=== PATIENT | female | born 1940 | race Caucasian/White ===

== ENCOUNTER 2017-05-09 10:41 | Inpatient (IN) | payer BC ==
[2017-05-06 11:37] LABS: BASOPHILS 0.7 %; BASOPHILS ABSOLUTE 0.05 10/3/uL (0.0-0.16); EOSINOPHILS 2.7 %; EOSINOPHILS ABSOLUTE 0.21 10/3/uL (0.0-0.53); HEMATOCRIT 37.4 % (36.0-48.0); HEMOGLOBIN 12.2 g/dL (12.0-16.0); IMMATURE GRANULOCYTES 0.1 %; IMMATURE GRANULOCYTES ABSOLUTE 0.01 10/3/uL (0.0-0.11); LYMPHOCYTES 23.7 %; LYMPHOCYTES ABSOLUTE 1.82 10/3/uL (0.67-4.30); MANUAL DIFF NO %; MEAN CORPUS HGB CONC 32.6 g/dL (32.0-36.0); MEAN CORPUSCULAR HEMOGLOB 29.3 pg (26.0-34.0); MEAN CORPUSCULAR VOLUME 89.7 fL (80-100); MEAN PLATELET VOLUME 9.7 fL (9.2-13.0); MONOCYTES 8.6 %; MONOCYTES ABSOLUTE 0.66 10/3/uL (0.21-1.20); NEUTROPHILS 64.2 %; NEUTROPHILS ABSOLUTE 4.93 10/3/uL (2.02-8.40); PLATELET COUNT 284 10/3/uL (150-400); RBC DISTRIBUTION WIDTH 13.4 % (12.0-16.0); RED CELL COUNT 4.17 10/6/uL (4.0-5.6); WHITE BLOOD CELLS 7.7 10/3/uL (4.5-10.5)
[2017-05-06 11:50] LABS: BUN (BLOOD UREA NITROGEN) 16 MG/DL (6-23); CALCIUM, SERUM 9.3 MG/DL (8.5-10.4); CHLORIDE, SERUM 104 MMOL/L (96-112); CO2 (CARBON DIOXIDE) 27 MMOL/L (24-34); CREATININE 1.23 MG/DL (0.55-1.02); GFR AFRICAN AMERICAN 50 ML/MIN (>=60); GFR NON AFRICAN AMERICAN 43 ML/MIN (>=60); GLUCOSE, SERUM 101 MG/DL (60-99); POTASSIUM, SERUM 3.9 MMOL/L (3.5-5.3); SODIUM, SERUM 137 MMOL/L (135-148)
--- NOTE | ~2017-05-09 | OP ---
Record Of Operation [facility] [address] [place]. [address] NAME: SAMPLE,CRYSTAL LOTT : 44 STATUS : ADM Yonny PAT#: [id number] AGE: 77 ADM/REG DATE : 05/09/17 MR#: [id number] REPORT SERV DATE: 05/10/17 DICTATED BY: MIRNA GRULLON DATE: 05/09/17 REPORT STATUS : Draft TRANSCRIBED BY: MODRoxana DATE: 05/09/17 DATE OF PROCEDURE: 05/09/2017 PREPROCEDURE DIAGNOSIS: Diverticulitis. POSTPROCEDURE DIAGNOSIS: Diverticulitis. PROCEDURE: Robotic low anterior resection. MANAGER SEARCH ENGINE: Kory. DESCRIPTION OF PROCEDURE: The patient was taken to the operating room, induced under general anesthesia, placed into lithotomy. Proctoscopy with distal rectal washout was performed and Silvestre catheter was placed. The patient was prepped and draped in the usual sterile fashion beginning with the right lower quadrant incision. This is actually a 4 cm incision in the fascia in order to extract the specimen. This was carried down to the level of fascia using cautery. Anterior fascia was opened between two Kochers. Posterior fascia opened between two hemostats. The wound protector was placed in through the fascia, tightened down to size. The anvil with the suture attached was placed into the pelvis and then the 12 with the 8 trocar was placed in through the wound protector, tightened with the [place] and used for insufflation. At this point, there were three other robotic trocars placed across the midline. These were 8 mm trocars under direct laparoscopic guidance and a 5 mm trocar was placed in the right upper quadrant. Once these were in place, it was noted that the suture which was attached to the anvil was grasped and the suture came off. So, the suture was attached to the abdominal wall to keep it out of harm's way. The small bowel was placed in the epigastrium. The anvil found and placed into the pelvis. At this point, there were adhesions of the small bowel in the pelvis. These were taken down with cautery scissors. Once that was accomplished, attention was then turned to the sigmoid colon. The entire left colon including the sigmoid was mobilized completely. The ureter was easily identified. The distal segment which was rectum at the level of the sacral promontory was identified and the mesentery was marked using cautery scissors, and at this point, the proximal margin was chosen, this was also marked with cautery scissors, and then using 2 green loads of the robotic stapler, the distal transection point was transected, the mesentery was taken with the vessel sealer. At this point, ICG 3 mL was given intravenously and Firefly was used. It documented where blood flow was still excellent, here a window was made in the colon, a colotomy, and the anvil was placed in through the colotomy. It was tilted so that the new colotomy was made bringing the shaft out and it was grasped using the third arm. The prior colostomy was closed using a Prolene stitch leaving the needle attached and then another two loads of the green loads of the robotic stapler was used to transect at this level. The specimen was placed into the right upper quadrant to keep it out of harm's way. Then Kory Bennett placed an anvil [place] grasper through the 12, a padded grasper through the 5 which was used to attach the anvil to the stapler. During this process, Dr. Grissom first dilated the anus one, twos, and three fingers. There is a lot of twisting of the rectum itself. The stapler was attempted to bring it out through the staple line which it was then removed, an egg-shaped anvil dilator was used and then it was placed again. The spike was brought out slightly at the tip of the staple line. However, this was difficult to see. The Record Of Operation [facility] [id number] [place]. [address] NAME: CRYSTAL VINCENT : 44 STATUS : ADM Yonny PAT#: [id number] AGE: 77 ADM/REG DATE : 05/09/17 MR#: [id number] REPORT SERV DATE: 05/10/17 DICTATED BY: MIRNA GRULLON DATE: 05/09/17 REPORT STATUS : Draft TRANSCRIBED BY: MODRoxana DATE: 05/09/17 stapler was removed, replaced, and brought out through the same hole. Then the anvil was attached and watched under direct laparoscopic guidance as the stapler was closed until the marker was jail in the green window and held for 15 seconds, all the way through the green window and held for 15 seconds and then fired and held for 15 seconds. At this point, the stapler was turned two full turns and brought out through the anus. There were two donuts. The distal margin was not as thick as the proximal margin, it was intact, but it broke as it was removed from the stapler. It was passed off the table and sent to pathology. Then, the proximal bowel was clamped using the small grasper. The pelvis was filled with fluid. The anastomosis was submerged and Dr. Grissom used the proctoscope to insufflate, this was a negative leak test. Due to the concern about where the spike had come out, an extra stitch was placed, this was 3-0 Vicryl SH used to do a [id number] stitch at the corner intersection between the linear staple line and the circular staple line and following this, irrigation and suction. The padded grasper was brought through the 12, locked onto the specimen, and the robotic instruments were removed. The robot was undocked. The Rgace was released and the specimen was brought out through the #4, 12 mm trocar site. This needle was cut from the specimen and the specimen was passed off the table to pathology. The fascia was closed with a Prolene suture medial to lateral. Tammi's was closed with 3-0 Vicryl and then all skin was closed with 4-0 Monocryl subcu followed by Mastisol, Steri-Strips, and bandage. She tolerated the procedure well. HEAVEN/BARTOLO Mirna Grullon M.D. / [id number] CC: Tavon Valverde Dr.
--- NOTE | ~2017-05-09 | HP ---
History And Physical [address] [facility]. [address] NAME: SAMPLE,CRYSTAL LOTT : 44 STATUS : ADM Yonny PAT#: [id number] AGE: 77 ADM/REG DATE : 05/09/17 MR#: [id number] REPORT SERV DATE: 05/10/17 DICTATED BY: MIRNA GRULLON DATE: 05/09/17 REPORT STATUS : Draft TRANSCRIBED BY: BARTOLO DATE: 05/09/17 DATE OF ADMISSION: 05/09/2017 REASON FOR ADMISSION: Robotic low anterior resection due to diverticulitis. PAST MEDICAL HISTORY: Breast cancer, hemorrhoids, pelvic and perineal pain, rectocele, hypertension. PAST SURGICAL HISTORY: Hysterectomy, breast lumpectomy on the left followed by stereotactic breast biopsy, re-excision with partial mastectomy on the left and colonoscopy. ALLERGIES: ASPIRIN. MEDICATIONS: Aspirin, potassium, vitamin B12, Lasix. Lisinopril. SOCIAL HISTORY: Does not smoke or drink. She is . FAMILY HISTORY: Significant for atherosclerosis, hypertension, polycystic ovarian disorder, stroke, and thyroid disease. REVIEW OF SYSTEMS: As stated in HPI, otherwise, negative. PHYSICAL EXAMINATION: VITAL SIGNS: 84, 125/60. BMI of 29. GENERAL: Alert, elderly white female, in no acute distress. HEENT: Normocephalic, atraumatic. EOMI. PERRLA. Oropharynx is clear. NECK: Supple. No lymphadenopathy. CARDIOVASCULAR: Clear to auscultation bilaterally. HEART: Regular rate and rhythm. ABDOMEN: Soft, obese, with appropriate surgical scars. EXTREMITIES: Moves all extremities well. Cranial nerves II through XII intact. No rashes. ASSESSMENT AND PLAN: A 77-year-old female, with diverticulitis and adhesions. Plan is for low anterior resection done robotically. I have discussed risks, benefits, and alternatives. She understands and is willing to proceed. HEAVEN/BARTOLO Mirna Grullon M.D. / [id number] History And Physical [address] [place]. [address] NAME: SAMPLE,CRYSTAL LOTT : 44 STATUS : ADM Yonny PAT#: [id number] AGE: 77 ADM/REG DATE : 05/09/17 MR#: [id number] REPORT SERV DATE: 05/10/17 DICTATED BY: MIRNA GRULLON DATE: 05/09/17 REPORT STATUS : Draft TRANSCRIBED BY: MODL DATE: 05/09/17 CC: Mirna Grullon M.D.
[~2017-05-09 10:41] MED LIST: ASAB PO; L20 PO; POTASSIUM GLUCO99 MG; PROTONIX PO; VITAMIN B-122500 MCG SL; ZESTORETIC1 TA1 PO
[2017-05-09 18:13] LABS: HEMATOCRIT 36.5 % (36.0-48.0); HEMOGLOBIN 12.2 g/dL (12.0-16.0)
[2017-05-10 06:18] LABS: BUN (BLOOD UREA NITROGEN) 21 MG/DL (6-23); CALCIUM, SERUM 8.4 MG/DL (8.5-10.4); CHLORIDE, SERUM 98 MMOL/L (96-112); CO2 (CARBON DIOXIDE) 23 MMOL/L (24-34); CREATININE 1.74 MG/DL (0.55-1.02); GFR AFRICAN AMERICAN 33 ML/MIN (>=60); GFR NON AFRICAN AMERICAN 28 ML/MIN (>=60); GLUCOSE, SERUM 187 MG/DL (60-99); POTASSIUM, SERUM 3.6 MMOL/L (3.5-5.3); SODIUM, SERUM 133 MMOL/L (135-148)
[2017-05-10 06:45] LABS: BASOPHILS 0 %; EOSINOPHILS 0 %; LYMPHOCYTES 4.4 %; LYMPHOCYTES ABSOLUTE 0.6 10/3/uL (0.7-4.3); MEAN CORPUS HGB CONC 33.5 g/dL (32.0-36.0); MEAN CORPUSCULAR HEMOGLOB 29.8 pg (26.0-34.0); MEAN PLATELET VOLUME 8.2 fL (6.8-10.8); MONOCYTES 5.8 %; MONOCYTES ABSOLUTE 0.8 10/3/uL (0.2-1.2); NEUTROPHILS 89.8 %; NEUTROPHILS ABSOLUTE 12.2 10/3/uL (2.0-8.4); PLATELET COUNT 233 10/3/uL (150-400); RBC DISTRIBUTION WIDTH 13.5 % (12.0-16.0); RED CELL COUNT 3.68 10/6/uL (4.0-5.6)
[2017-05-10 06:47] LABS: HEMATOCRIT 32.8 % (36.0-48.0); MANUAL DIFF NO %; WHITE BLOOD CELLS 13.6 10/3/uL (4.5-10.5)
[2017-05-11 06:57] LABS: BUN (BLOOD UREA NITROGEN) 19 MG/DL (6-23); CALCIUM, SERUM 8.6 MG/DL (8.5-10.4); CHLORIDE, SERUM 103 MMOL/L (96-112); CO2 (CARBON DIOXIDE) 25 MMOL/L (24-34); CREATININE 1.45 MG/DL (0.55-1.02); GFR AFRICAN AMERICAN 41 ML/MIN (>=60); GFR NON AFRICAN AMERICAN 35 ML/MIN (>=60); POTASSIUM, SERUM 3.7 MMOL/L (3.5-5.3); SODIUM, SERUM 136 MMOL/L (135-148)
[2017-05-11 07:03] LABS: GLUCOSE, SERUM 116 MG/DL (60-99)
[2017-05-11 10:08] LABS: ASCORBIC ACID (UR NOT ORDER) NEG (NEG); BILIRUBIN, URINE NEGATIVE (NEG); KETONE, URINE NEGATIVE (NEG); LEUKOCYTE ESTERASE(NOT OR NEG (NEG); WBC (NOT ORDERED) (RFLEX) 1 (0-5)
[2017-05-11 12:36] LABS: BASOPHILS 0.2 %; BASOPHILS ABSOLUTE 0.02 10/3/uL (0.0-0.16); EOSINOPHILS 1.3 %; EOSINOPHILS ABSOLUTE 0.13 10/3/uL (0.0-0.53); HEMATOCRIT 34.9 % (36.0-48.0); HEMOGLOBIN 11.5 g/dL (12.0-16.0); IMMATURE GRANULOCYTES 0.2 %; IMMATURE GRANULOCYTES ABSOLUTE 0.02 10/3/uL (0.0-0.11); LYMPHOCYTES 17.5 %; MANUAL DIFF NO %; MEAN CORPUSCULAR HEMOGLOB 29.6 pg (26.0-34.0); MEAN CORPUSCULAR VOLUME 89.9 fL (80-100); MEAN PLATELET VOLUME 9.6 fL (9.2-13.0); MONOCYTES 8.3 %; MONOCYTES ABSOLUTE 0.81 10/3/uL (0.21-1.20); NEUTROPHILS 72.5 %; NEUTROPHILS ABSOLUTE 7.04 10/3/uL (2.02-8.40); PLATELET COUNT 252 10/3/uL (150-400); RBC DISTRIBUTION WIDTH 13.8 % (12.0-16.0); RED CELL COUNT 3.88 10/6/uL (4.0-5.6); WHITE BLOOD CELLS 9.7 10/3/uL (4.5-10.5)
[2017-05-11] MEDS ORDERED: NORCO1 TA2 PO (14:55)
== END 2017-05-11 15:23 | disposition home or self-care (01) | DRG 331 ==
LOC: SDC 10:41 → 5SO 19:36
PROVIDERS: Surgery
PROC: 0DBN4ZZ Excision of Sigmoid Colon, Percutaneous Endoscopic Approach (ICD-10-PCS; 2017-05-09)
PROC: 0DB64ZZ Excision of Stomach, Percutaneous Endoscopic Approach (ICD-10-PCS; 2017-05-09)
PROC: 0DJD8ZZ Inspection of Lower Intestinal Tract, Via Natural or Artificial Opening Endoscopic (ICD-10-PCS; principal; 2017-05-09 12:00)
DX: K57.32 Diverticulitis of large intestine without perforation or abscess without bleeding (principal); I12.9 Hypertensive chronic kidney disease with stage 1 through stage 4 chronic kidney disease, or unspecified chronic kidney disease; N18.9 Chronic kidney disease, unspecified; Z85.3 Personal history of malignant neoplasm of breast; Z98.890 Other specified postprocedural states; Z90.710 Acquired absence of both cervix and uterus; Z88.6 Allergy status to analgesic agent; Z79.899 Other long term (current) drug therapy; Z82.49 Family history of ischemic heart disease and other diseases of the circulatory system; Z82.3 Family history of stroke
CPT/HCPCS: 36415; 71020; 80048; 81001; 85014; 85018; 85025; 86850; 86900; 86901; 88307; 93005; A9270-GY; J0690; J1885; J2250; J2270; J2370; J2405; J2550; J2710; J2795; J3010